=== PATIENT | male | born 1965 | race Caucasian/White ===

== ENCOUNTER → 2018-02-12 08:55 | Outpatient (CLI) | payer OTHER | END | disposition home or self-care (01) | LOC: D.MRI 08:55 | DX: M54.5 Low back pain (principal) ==

== ENCOUNTER 2020-01-17 05:25 | Day surgery (SDC) | payer BC, OTHER ==
[~2020-01-17] VITALS: Ht 172.7 cm; Wt 74.8 kg
--- NOTE | ~2020-01-17 | OP ---
PATIENT NAME: HASMUKH KNOX MEDICAL RECORD: [id number] :67 LOCATION:[facility] ADMISSION DATE: SURGEON: MARCOS MENON MD DATE OF OPERATION: 01/17/2020 PREOPERATIVE DIAGNOSIS: Lumbar spinal stenosis and foraminal stenosis L4-L5 left and left L4-L5 disc protrusion. POSTOPERATIVE DIAGNOSIS: Lumbar spinal stenosis and foraminal stenosis L4-L5 left and left L4-L5 disc protrusion. PROCEDURES: Lumbar laminotomy, medial facetectomy and foraminotomy L4-L5, left with METRx. SURGEON: Marcos Menon MD GAME DESIGN INSTRUCTOR: Narciso Cisneros APN DESCRIPTION AND TECHNIQUE: After induction of general endotracheal anesthesia, the patient was rolled prone on a Young frame. Lumbar spine was prepped and draped in usual sterile fashion. Fluoroscopic x-ray and spinal needle localized the L4-L5 interspace on the left side. A microscope and Midas Ash drill were used to perform laminotomy, medial facetectomy, and foraminotomy at L4-L5 on the left. Hypertrophied ligamentum flavum was removed with Cloward rongeurs. This appeared to decompress the left L5 nerve root. The annulus of the disc was incised and additional disc material was removed from the disc space. The disc appeared to completely decompress the left L5 nerve root. Meticulous hemostasis was maintained throughout the wound. The wound was irrigated with copious amounts of Ancef irrigant solution. Retractors removed. The fascia was closed with 2-0 Vicryl suture. The subdermal layer was closed with 3-0 Vicryl sutures. Skin was closed with kaiser. A sterile dressing was applied to the wound. The patient was awakened in good condition and taken to recovery. All counts were reported as correct. Estimated blood loss was minimal. Narciso Cisneros APN, assisted throughout the procedure with hemostasis, retraction, and suturing of the wound closure. TRANSINT:[id number] Voice Confirmation ID: [id number] DOCUMENT ID: [id number] MARCOS MENON MD CC: [id number] DICTATION DATE: 01/20/20809 FINISHING RANGE SUPERVISOR: 01/20/201939 [facility] 01/17/20 [facility] [address] [place] [address]
[2020-01-17 06:35] VITALS: BP 137/82; Ht 172.7 cm; Wt 74.8 kg
[2020-01-17] MEDS ORDERED: ASCORBIC ACID500 MG PO (06:54)
[2020-01-17] MEDS ORDERED: MEDROL DOSE PACK4 MG PO (09:20)
[2020-01-17] MEDS ORDERED: HYDROCODON-ACE1 EA10 PO (09:21)
--- NOTE | 2020-01-17 10:02 | NUR ---
1000-RECD TO ROOM FROM PACU. ALERT. IV PATENT. RESP WITH EASE. DENIES PAIN/NAUSEA. DERMABOND TO LUMBAR INCISION. TAKING LIQUIDS WITHOUT NAUSEA.
== END 2020-01-17 11:15 | disposition home or self-care (01) ==
LOC: D.OPS 05:25
PROVIDERS: ATTEND Neurological Surgery
DX: M48.061 Spinal stenosis, lumbar region without neurogenic claudication (principal); M51.26 Other intervertebral disc displacement, lumbar region